=== PATIENT | male | born 1950 | race Caucasian/White ===

== ENCOUNTER 2017-06-22 17:24 | Emergency (ER) | payer OTHER ==
[~2017-06-22] VITALS: Ht 180.3 cm; Wt 80.0 kg
[~2017-06-22 17:24] MED LIST: FENO160T2 PO; HYDR-3580 PO; LOSA100T3 PO; METO50CR PO; NEXI40CA PO; RIVA10 PO
[2017-06-22 17:52] VITALS: BP 128/81; PULSE 98; RESP 16; TEMP 99.2; O2SAT 95
--- NOTE | 2017-06-22 17:56 | PD ---
HPI Chief Complaint: Alcohol intoxication Time Seen by Provider: 17:53 Travel History International Travel<30 days: No Contact w/Intl Traveler<30days: No History of Present Illness HPI 67yo M with PMH of alcohol abuse presents to the ED under [place] for alcohol intoxication. Pt was found lying in broken down cardboard and visibly intoxicated. Pt admits to drinking alcohol. Denies any fever, chest pain, sob , n/v, abdominal pain, focal weakness or numbness. Pt states "Im good". No overt signs of trauma and follows commands. PFSH Past Medical History Cancer: No Cardiovascular Problems: No Diabetes: Yes Endocrine: No Genitourinary: No Hepatitis: No Hiatal Hernia: No Immune Disorder: No Musculoskeletal: Yes (ARTHITIS KARISSA KNESS,HX CRUSHED VERTEBRA MID BACK, ) Neurologic: No Psychiatric: No Respiratory: No Thyroid Disease: No Past Surgical History Abdominal Surgery: No AICD: No Body Medical Devices: NONE Cardiac Surgery: No Ear Surgery: No Endocrine Surgery: No Eye Surgery: No Genitourinary Surgery: No Joint Replacement: No Oral Surgery: Yes (TONSILLECTOMY) Pacemaker: No Thoracic Surgery: No Social History Substance Use: No Allergies-Medications (Allergen,Severity, Reaction): Coded Allergies: codeine (Unverified Allergy, Severe, 06/22/17) CREEPY, CRAWLY FEELING ON SKIN Reported Meds & Prescriptions Reported Meds & Active Scripts Active Active Prescriptions or Reported Medications Unobtainable Review of Systems Except as stated in HPI: all other systems reviewed are Neg Physical Exam Narrative GENERAL: 67yo M not in distress. SKIN: Focused skin assessment warm/dry. HEAD: Atraumatic. Normocephalic. EYES: Pupils equal and round. No scleral icterus. No injection or drainage. ENT: No nasal bleeding or discharge. Mucous membranes pink and moist. NECK: No midline cervical spine ttp. CARDIOVASCULAR: Regular rate and rhythm. No murmur appreciated. RESPIRATORY: No accessory muscle use. Clear to auscultation. Breath sounds equal bilaterally. GASTROINTESTINAL: Abdomen soft, non-tender, nondistended. No rebound tenderness or guarding. MUSCULOSKELETAL: No obvious deformities. No clubbing. No cyanosis. No edema. NEUROLOGICAL: Awake and alert. No obvious cranial nerve deficits. Motor grossly within normal limits. Normal speech. Data Data Last Documented VS Vital Signs Date Time Temp Pulse Resp B/P (MAP) Pulse Ox O2 Delivery O2 Flow Rate FiO2 06/22/17 17:52 99.2 98 16 128/81 (97) 95 MDM Medical Decision Making Medical Screen Exam Complete: Yes Emergency Medical Condition: Yes Differential Diagnosis alcohol intoxication Narrative Course 67yo M with alcohol abuse here under [place] for alcohol intoxication. VS stable. Pt answers questions and follows commands. No overt signs of trauma. Will let pt sleep in off and sober up in the ED. Pt is medically clear for discharge upon ambulating in the ED without assistance. Diagnosis Primary Impression: Alcohol abuse Patient Instructions: General Instructions Departure Forms: Tests/Procedures Additional Instructions: Please follow up with your primary care physician in 3-7 days. Return to the ED if symptoms worsen. Med/Other Pt SpecificInfo: No Change to Meds Scripts Unable to Obtain Active Prescriptions or Reported Meds Disposition: 01 DISCHARGE HOME Condition: Stable Serene Mosley DO Jun 22, 2017 17:56
[2017-06-23 06:00] VITALS: BP 120/80
== END 2017-06-23 06:00 | disposition home or self-care (01) ==
LOC: NEDAMB 17:24
DX: F10.10 Alcohol abuse, uncomplicated (principal); E11.9 Type 2 diabetes mellitus without complications; M13.862 Other specified arthritis, left knee; M13.861 Other specified arthritis, right knee; Z88.5 Allergy status to narcotic agent
CPT/HCPCS: 99283

== ENCOUNTER 2018-06-01 05:06 | Inpatient (IN) ==
[2018-06-01] MEDS ORDERED: Chlorhexidine 4% Topical 120 APPLIC/120 ML Bottle TOPICAL SCH (06:15)
[2018-06-01] MEDS ORDERED: ceFAZolin 2 GM Premix Inj 2 GM/50 ML PIGGYBACK IV.SIG SCH (06:15)
[2018-06-01] MEDS ORDERED: Metoprolol Tartrate 25 MG Tablet PO SCH (06:15)
[2018-06-01] MEDS ORDERED: Chlorhexidine Gluconate 2% 1 Pack (2 Cloths) TOPICAL SCH (06:15)
[2018-06-01] MEDS ORDERED: Bupivacaine Liposomal PF 1.3% Inj 20 ML Vial ONE (06:19)
[2018-06-01] MEDS ORDERED: Sodium Chlor 0.9% Inj 40 ML, Bupivacaine Liposo PF 1.3% Inj 20 ML P-ARTICULR SCH ×2 (06:30)
[2018-06-01] MEDS ORDERED: TRANEXAMIC ACID IV.SIG SCH ×2 (07:00→10:00)
[2018-06-01] MEDS ORDERED: SODIUM CHLOR 0.9% IV.SIG SCH ×2 (07:00→10:00)
[2018-06-01] MEDS ORDERED: Sodium Chlor 0.9% Inj 500 ML IV.SIG SCH (07:00)
--- NOTE | 2018-06-01 09:10 | P.OP ---
- Preoperative Diagnosis (1) Primary osteoarthritis of left knee - Postoperative Diagnosis (1) Primary osteoarthritis of left knee Date of procedure: 06/01/18 Procedure: Left total knee arthroplasty using Anton Triathlon prosthesis (uncemented). Anesthesia: GETA, regional (Adductor canal block), local (Exparel) Surgeon: Russel Junior MD Obstetrical Nurse: HENRY Burger Estimated blood loss (mL): 150 Operation and Findings: Indications and Findings: This 68-year-old man has had 4 years of left knee pain progressively worsening with nonresponse to conservative measures including anti-inflammatory agents, analgesics, activity modification, intra- articular corticosteroids and ambulatory aids. He complained of pain with activities of daily living including ascending and descending ladders and stairs. Physical findings showed genuine varum with crepitation on motion, medial laxity, medial tenderness and palpable osteophytes. Radiographic findings showed significant osteoarthritis to [id number] in the medial compartment with loss of articular cartilage, osteophytes and eburnation. Operative findings: There were osteophytes in the medial, lateral and patellofemoral compartments. There was loss of articular cartilage to bone-on- bone in the medial compartment with significant grade 2-4 change in the patellofemoral compartment and grade 2-3 change in the lateral compartment. There is significant eburnation in the posterior aspect of the medial compartment. The prosthesis used was a [employer] Triathlon prosthesis. The femur was a size 7 left cruciate retaining uncemented. The tibial baseplate was a size 7 Tritanium with a 9 mm X3 polyethylene cruciate retaining spacer. The patella was a size 40 mm asymmetric uncemented Tritanium backed. The patient was brought to the clean-air operating suite after administration of a regional anesthetic by adductor canal block. A spinal anesthetic was administered. The position was supine with a small bolster under the hip on the operative side. A pneumatic tourniquet was applied to the upper thigh. The lower extremity was prepped with alcohol, Hibiclens and ChloraPrep and draped in the usual manner with the knee draped free. An appropriate timeout procedure was carried out. An incision was made from about 3 fingerbreadths above the superior medial pole of patella down the tibial tubercle on the medial side. The incision was deepened through the subcutaneous tissue to the retinacular structures which were exposed medially and laterally. A medial retinacular incision was made from the superior medial pole of patella down the tibial tubercle and up into the quadriceps tendon, splitting it longitudinally in the medial one third. The patella was reflected. The infrapatellar fat pad was debulked. The anterior cruciate ligament was excised. Medial and lateral meniscectomies were initiated. Fenestrations were made in the distal femur and proximal tibia for intramedullary referencing guides. The distal femoral cutting guide and jig were assembled for a 5, 8 mm cut. When this was fit into position,the cutting block was stabilized with pins. The jig was removed. The distal femoral cut was completed with the oscillating saw. The sizing guide was positioned in place along Whitesides line and the epicondylar axis and stabilized with pins. The femoral size was determined as noted above. The 4-in-1 cutting block was positioned in place. Anterior and posterior cuts were made followed by posterior and anterior chamfer cuts taking care to prevent injury to ligamentous structures. Osteophytes were trimmed from the distal femur. A bone plug was placed into the fenestration of the distal femur. The proximal tibia was exposed. The medial and lateral meniscectomies were completed. The proximal tibial cutting guide was positioned in place and stabilized with a pin for rotation. The depth of cut was verified with a stylus off the high side. The cutting block was stabilized with pins. The jig was removed. The depth of cut was verified and adjusted appropriately with the use of the spacer block. The proximal tibial cut was made with the oscillating saw taking care to prevent injury to neurovascular and ligamentous structures. Proximal tibial bone was removed. Local anesthetic was administered with Exparel in the posterior capsule. The tibial baseplate trial was positioned in place. After verifying the appropriate size, the base plate trial was positioned in place along with its spacer. The femoral component was impacted into place. The alignment was checked. The tibial baseplate was pinned in place on the tibia. Attention was directed to the patella. The patella drill guide was positioned in place for the appropriate sized patella. Patellar drilling was then carried out. The trial patella was positioned in place. The knee was taken through a range of motion which was easily 0 extension to 140. The patella trial was removed. The femoral drill holes were made. The femoral trials were removed. The tibial spacer was removed. A bone plug was placed into the proximal tibia. The tibial punch was impacted through the proximal tibial punch guide. This was all removed followed by placement of the tibial drill guide. The tibial drill holes were made. The guide was removed. The cut ends of bone were cleaned with pulse lavage. The tibial baseplate was impacted into place and seated appropriately. The spacer was inserted. The the femoral component was impacted into place and seated appropriately. The patella component was seated with the patellar vice and tightened appropriately. The knee was taken through a range of motion which was comparable to the previous range of motion with excellent stability in flexion and extension and appropriate patellofemoral tracking. The remainder of the Exparel was injected throughout the knee as a local anesthetic. Drains were brought out the superior lateral aspect of the suprapatellar pouch. Wound closure commenced using 0 Vicryl interrupted [id number] sutures for the capsular and fascial structures, 2-0 Vicryl interrupted simple sutures with buried knots for the subcutaneous tissues and 4-0 Monocryl, continuous subcuticular closure for the skin. The wound was dressed with Dermabond Prineo followed by a dry sterile dressing. Sterile soft roll with a cooling pad and Eduin bandage from the base of the toes to mid thigh were applied. Patient was transferred from the operating room to the recovery room in satisfactory condition having tolerated procedure well. Counts were correct. Specimens: None. Estimated blood loss: 150 mL
[2018-06-01] MEDS ORDERED: Post-op Orders (for Pharmacy) OTHER STA (09:13)
[2018-06-01] MEDS ORDERED: Zolpidem Tartrate 5 MG Tablet PO PRN (09:13)
[2018-06-01] MEDS ORDERED: Acetaminophen 325 MG Tablet PO PRN (09:13)
[2018-06-01] MEDS ORDERED: Tranexamic Acid Inj 0 MG in Sodium Chlor 0.9% Inj 100 ML IV.SIG ONE (09:13)
[2018-06-01] MEDS ORDERED: Morphine Inj 4 MG/ML Vial IV.PUSH PRN (09:13)
[2018-06-01] MEDS ORDERED: Aluminum/Magnesium/Simethacone Susp 30 ML UDC PO PRN (09:13)
[2018-06-01] MEDS ORDERED: Bisacodyl 10 MG Supp RECTAL PRN (09:13)
--- NOTE | 2018-06-01 09:28 | P.DCO ---
- Physical Therapy Physical Therapy: Gait training Knee: Total knee, Protocol: Left, Gait training, Full weight bearing Left Lower Extremity Weight Bearing: Weight bearing as tolerated Left Lower Extremity Range of Motion: Active ROM (Active, active assisted, passive range of motion. Range of motion goal is 0 extension to 135 of flexion. Range of motion achieved in the operating room was 0 extension to 140 of flexion.) - Nursing Nursing: Dressing changes Dressing changes: Daily dressing change, Coverderm/Primapore Additional instructions: Do not remove Dermabond Prineo. - Certification Need for Home Health services: I have seen patient Cullen Viet Bruno on 06/01/18. My clinical findings support the need for the requested home health care services because: Need for Home Health Services: Limited mobility due to disease progression, Deconditioned with increased weakness, High risk of falls Homebound Certification: I certify that my clinical findings support that this patient is homebound because: Homebound Certification: Post-op weakness, Unsteady gait/balance, Unsafe to leave home unassisted
[2018-06-01] MEDS ORDERED: fentaNYL Citrate Inj 100 MCG/2 ML Ampul ONE (09:44)
[2018-06-01] MEDS ORDERED: *morphine SULFATE 4 MG/ML PERIprocedure ONLY ONE (10:06)
--- NOTE | 2018-06-01 10:37 | XR ---
EXAM DATE: 06/01/2018 10:23 AM EDT AGE/SEX: 68 years / Male INDICATIONS: Post op, left knee surgery. CLINICAL DATA: This is the patient's initial encounter. Patient reports that signs and symptoms have been present for 1 day and indicates a pain score of 2/10. MEDICAL/SURGICAL HISTORY: None. None. COMPARISON: No prior exams available for comparison. FINDINGS: A total knee arthroplasty is identified. The bone density is normal. The tibial and femoral component s appear well seated. There is a surgical drain identified and mild soft tissue swelling. CONCLUSION: Postoperative changes left knee arthroplasty. Electronically signed by: Jewel Landry MD 06/01/2018 10:35 AM EDT
[2018-06-01] MEDS: Ketorolac Inj 30 MG/ML (IVP) Vial IV.PUSH SCH ×3 (11:18→21:28)
[2018-06-01] MEDS ORDERED: Labetalol HCl Inj 100 MG/20 ML Vial IV.PUSH ONE (12:00)
[2018-06-01] MEDS ORDERED: Glycopyrrolate Inj 1 MG/5 ML Syringe IV.PUSH ONE (12:00)
[2018-06-01] MEDS ORDERED: Lidocaine PF 1% Inj 5 ML Syringe INFILTRATN ONE (12:00)
[2018-06-01] MEDS ORDERED: Dextrose 50% in Water 50 ML Vial IV.PUSH PRN (17:27)
--- NOTE | 2018-06-01 17:34 | P.CONIM ---
History of Present Illness Service: [facility] Consult date: 06/01/18 Requesting Physician: Russel Junior Reason for Consult: Medical management Primary Care Provider: No Primary Care Physician Family Provider: No Primary Care Physician History of Present Illness: 68 YOWM with DM, HTN, and HLD admitted for elective L total knee replacement. [facility] consulted for medical management. Patient seen post-operatively. Reports pain is well-controlled. Denies chest pain, shortness of breath, abdominal pain , nausea, or vomiting. He doesn't want to take insulin in the hospital. Review of Systems All other systems reviewed negative except as stated in HPI [facility] - History History Provided By: Patient, Significant Other - Medical History Medical History: Medical History (Last Reviewed 06/01/18 @ 11:12 by Echo Muñiz) Cyst Diabetes GERD (gastroesophageal reflux disease) Hard of hearing Hypertension Osteoporosis Wears glasses - Surgical History Surgical History: Surgical History (Last Reviewed 06/01/18 @ 11:12 by Echo Muñiz) H/O Achilles tendon repair History of total right knee replacement History of vasectomy Hx of tonsillectomy - Tobacco History Second Hand Smoke Exposure: No Tobacco Use In Past 30 Days: No Smoking Status: Never smoker - Alcohol History How Often Do You Have a Drink Containing Alcohol: 2 to 4 times a month - Substance Use History Substance History: No History of Abuse - Immunization History Tetanus Immunization: Unsure Hx Influenza Vaccine This Season: Yes Medications and Allergies Active Medications: Active Medications Acetaminophen (Tylenol) 650 mg PO Q6H PRN PRN Reason: Pain Less Than 3 On Scale Hydrocodone Bitart/Acetaminophen ([place] 7.5/325) 1 tab PO Q4H PRN PRN Reason: PAIN SCALE 4 TO 6 MODERATE Last Admin: 06/01/18 17:07 Dose: 1 tab Hydrocodone Bitart/Acetaminophen ([place] 7.5/325) 2 tab PO Q6H PRN PRN Reason: PAIN SCALE 7 TO 10 SEVERE Al Hydrox/Mg Hydrox/Simethicone (Mag-Al Plus Susp Liq) 30 ml PO Q6H PRN PRN Reason: INDIGESTION Al Hydroxide/Mg Hydroxide (Milk Of Magnesia Liq) 30 ml PO BID PRN PRN Reason: Mild Constipation Aspirin (Aspirin Chew) 81 mg PO BID [facility] Bisacodyl (Dulcolax Supp) 10 mg RECTAL DAILY PRN PRN Reason: SEVERE CONSITIPATION Chlorhexidine Gluconate (Chlorhexidine 2% Cloth) 3 pack TOPICAL [employer]IL [employer]IP[employer] [facility] Stop: 06/04/18 06:02 Chlorhexidine Gluconate (Hibiclens 4% Topical) 1 applicatio TOPICAL ONCE [facility] Stop: 06/05/18 06:14 Sodium Chloride 40 ml/ (Bupivacaine Liposome 20 ml) 0 ml P-ARTICULR ONCE [facility] Stop: 06/01/18 21:00 Last Admin: 06/01/18 07:21 Dose: 1 bag Diphenhydramine HCl (Benadryl) 25 mg PO Q6H PRN PRN Reason: ITCHING Fenofibrate (Tricor) 145 mg PO HS [facility] Hydrochlorothiazide (Hydrodiuril) 25 mg PO HS [facility] Hydrocortisone Acetate (Hydrocortisone 1% Cream) 1 applicatio TOPICAL BID [facility] Lactated Ringer's (Lr 1000 Ml Inj) 1,000 mls @ 30 mls/hr IV.SIG .Q24H [facility] Stop: 06/04/18 06:02 Last Admin: 06/01/18 06:05 Dose: 30 mls/hr Sodium Chloride (Ns Inj) 500 mls @ 30 mls/hr IV.SIG .Q10H [facility] Stop: 06/04/18 06:02 Tranexamic Acid 982 mg/ Sodium (Chloride) 109.82 mls @ 200 mls/hr IV.SIG ONCE [facility] Stop: 06/02/18 06:59 Last Infusion: 06/01/18 07:37 Dose: Infused Tranexamic Acid 982 mg/ Sodium (Chloride) 109.82 mls @ 200 mls/hr IV.SIG ONCE [facility] Stop: 06/02/18 09:59 Last Admin: 06/01/18 10:02 Dose: 200 mls/hr Cefazolin Sodium/Dextrose (Ancef 2 Gm Premix Inj) 2 gm in 50 mls @ 100 mls/hr IV.SIG [employer]IL [employer]IP[employer] [facility] Stop: 06/01/18 21:00 Last Infusion: 06/01/18 07:29 Dose: Infused Cefazolin Sodium 1,000 mg/ (Sodium Chloride) 100 mls @ 200 mls/hr IV.SIG Q6H [facility] Stop: 06/02/18 01:29 Last Admin: 06/01/18 12:44 Dose: 200 mls/hr Lactated Ringer's (Lr 1000 Ml Inj) 1,000 mls @ 80 mls/hr IV.CONT .[id number] [facility] Last Admin: 06/01/18 09:44 Dose: 80 mls/hr Ketorolac Tromethamine (Toradol Inj) 15 mg IV.PUSH Q6H [facility] Stop: 06/03/18 04:01 Last Admin: 06/01/18 15:37 Dose: 15 mg Lactulose (Lactulose Liq) 30 ml PO DAILY PRN PRN Reason: SEVERE CONSITIPATION Losartan Potassium (Cozaar) 100 mg PO HS [facility] Metformin HCl (Glucophage) 500 mg PO HS [facility] Metoprolol Tartrate (Lopressor) 25 mg PO [employer]IL [employer] [facility] Stop: 06/04/18 06:02 Miscellaneous Information ([facility] Nursing Information) 1 each OTHER UNSCH PRN PRN Reason: SEE LABEL COMMENTS Stop: 06/02/18 09:26 Morphine Sulfate (Morphine Inj) 2 mg IV.PUSH Q3H PRN PRN Reason: BREAKTHROUGH PAIN Multivitamins (Theragran) 1 tab PO DAILY [facility] Ondansetron HCl (Zofran Odt) 4 mg PO Q6H PRN PRN Reason: NAUSEA OR VOMITING Pantoprazole Sodium (Protonix) 40 mg PO HS [facility] Patient Own Medication - ( Canagliflozin [ Invokana] 100 Mg) Tablet 1 each PO DAILY [facility] Povidone Iodine (Betadine 5% Antisepsis Kit) 1 applicatio EACH NARE [employer] [facility] Stop: 06/04/18 06:02 Senna/Docusate Sodium (Andreia-Colace) 1 tab PO BID [facility] Sennosides (Senokot) 17.2 mg PO BID PRN PRN Reason: Moderate Constipation Sildenafil Citrate (Revatio) 20 mg PO DAILY [facility] Sodium Chloride (Ns Flush) 2 ml IV.FLUSH BID [facility] Sodium Chloride (Ns Flush) 2 ml IV.FLUSH PRN PRN PRN Reason: FLUSH AFTER USING IV ACCESS Verapamil HCl (Isoptin Sr) 120 mg PO DAILY [facility] Vitamin D (Vitamin D3) 1,000 unit PO DAILY [facility] Vitamin E (Vitamin E) 400 unit PO DAILY [facility] Zolpidem Tartrate (Ambien) 5 mg PO HS PRN PRN Reason: INSOMNIA Allergies Allergy/AdvReac Type Severity Reaction Status Date / Time codeine Allergy Severe Itching Verified 06/01/18 06:30 Home Medications Medication Instructions Recorded Confirmed Type aspirin [Aspirin Low Dose] 81 mg PO DAILY 05/14/18 06/01/18 History calcium carbonate [Calcium 600] 600 mg PO DAILY 05/14/18 06/01/18 History canagliflozin [Invokana] 100 mg PO DAILY 05/14/18 06/01/18 History cholecalciferol (vitamin D3) 1,000 unit PO DAILY 05/14/18 06/01/18 History [Vitamin D3] esomeprazole magnesium 40 mg PO DAILY 05/14/18 06/01/18 History fenofibrate 160 mg PO DAILY 05/14/18 06/01/18 History hydrocortisone 1 applic TOPICAL BID 05/14/18 06/01/18 History losartan-hydrochlorothiazide 1 tab PO DAILY 05/14/18 06/01/18 History metformin 500 mg PO DAILY 05/14/18 06/01/18 History milk thistle 300 mg PO DAILY 05/14/18 06/01/18 History multivit with min-folic acid 1 tab PO DAILY 05/14/18 06/01/18 History [Adult One Daily Multivitamin] saw palmetto 320 mg PO DAILY 05/14/18 06/01/18 History tadalafil [Cialis] 20 mg PO DAILY 05/14/18 06/01/18 History verapamil 120 mg PO DAILY 05/14/18 06/01/18 History vitamin E 400 unit PO DAILY 05/14/18 06/01/18 History Exam Vital signs: Vital Signs 06/01/18 06:10 06/01/18 06:22 06/01/18 09:26 Temperature 98.2 F 98.3 F Pulse Rate 73 68 92 H Respiratory Rate 20 10 L Blood Pressure 156/76 H 168/71 H Pulse Oximetry 96 97 98 06/01/18 09:30 06/01/18 09:45 06/01/18 10:00 Temperature Pulse Rate 78 73 74 Respiratory Rate 13 12 16 Blood Pressure 137/71 150/72 H 124/62 Pulse Oximetry 95 94 L 99 06/01/18 10:30 Temperature 97.8 F Pulse Rate 72 Respiratory Rate 14 Blood Pressure 136/71 Pulse Oximetry 96 Intake & Output 05/31/18 06/01/18 06/01/18 18:59 06:59 18:59 Intake Total 909.82 / 909.82 Output Total 150 / 150 Balance 759.82 / 759.82 Weight 98.2 kg Intake: IV 159.82 / 159.82 Cyklokapron Inj 982 MG In NS 109.82 / 109.82 Inj 100 ML @ 200 mls/hr IV.SIG ONCE [facility] Rx#:[id number] Ancef 2 GM Premix Inj 2 gm In 50 / 50 50 ml @ 100 mls/hr IV.SIG [employer]IP[employer] [facility] Rx#:[id number] Anesthesia Amount 750 / 750 Output: Estimated Blood Loss 150 / 150 Other: Date of Last Bowel Movement 05/31/18 Weight On Admission 98.2 kg Narrative: GENERAL: WN, WD male sitting up in chair in NAD. SKIN: Warm and dry. HEART: RRR no m/r/g. LUNGS: CTAB without wheezes or crackles. ABDOMEN: +BS, soft, NT, ND. EXTREMITIES: No LE edema. Dressing over left knee. NEURO: Awake and alert. Nonfocal. PSYCH: Appropriate mood and affect. Results - Labs Labs: Laboratory Results - last 24 hr 06/01/18 06/01/18 06/01/18 05:56 09:37 17:06 POC Glucose 143 H 184 H Blood Type A Positive Antibody Screen Negative - Imaging Impressions Knee X-Ray 06/01/18 09:11 CONCLUSION: Postoperative changes left knee arthroplasty. Assessment and Plan - Assessment (1) Status post total left knee replacement not using cement Code(s): Z96.652 - Presence of left artificial knee joint Status: Acute - Plan 68 YOWM with DM, HTN, and HLD admitted for elective L total knee replacement. [facility] consulted for medical management. 1. S/P LTKR - Post-op management per ortho 2. DM - Resume home metformin and Invokana - Monitor Accuchecks 3. HTN - Resume home Lopressor, Losartan, HCTZ and verapamil - Monitor BPs 4. Hypertriglyceridemia - Resume home fenofibrate DVT prophylaxis: Per ortho Discussed Condition With: The patient and telephone order supervisor Planning: Per ortho
[2018-06-01] MEDS: hydroCHLOROthiazide 25 MG Tablet PO SCH (21:21)
[2018-06-01] MEDS: Fenofibrate 145 MG Tablet PO SCH (21:21)
[2018-06-01] MEDS: Senna/Docusate Sodium 8.6/50 MG Tablet PO SCH (21:21)
[2018-06-02] MEDS: Ketorolac Inj 30 MG/ML (IVP) Vial IV.PUSH SCH ×4 (03:29→21:59)
--- NOTE | 2018-06-02 06:27 | P.PNOP ---
Subjective Interval history: Postop day #1. He is doing well. He has minimal complaints related to the knee at this time. He has been up walking. Physical therapy notes note that he walked 155 feet and had a range of motion of 0 extension to 92 of flexion. Physical Exam Vital signs: Vital Signs 06/01/18 09:26 06/01/18 09:30 06/01/18 09:45 Temperature 98.3 F Pulse Rate 92 H 78 73 Respiratory Rate 10 L 13 12 Blood Pressure 168/71 H 137/71 150/72 H Pulse Oximetry 98 95 94 L 06/01/18 10:00 06/01/18 10:30 06/01/18 12:00 Temperature 97.8 F 97.6 F Pulse Rate 74 72 78 Respiratory Rate 16 14 16 Blood Pressure 124/62 136/71 137/68 Pulse Oximetry 99 96 96 06/01/18 16:00 06/01/18 20:00 06/02/18 00:00 Temperature 97.9 F 97.6 F 97.6 F Pulse Rate 77 74 80 Respiratory Rate 16 17 17 Blood Pressure 138/74 138/57 L 125/60 Pulse Oximetry 95 95 96 06/02/18 01:30 06/02/18 04:00 Temperature 97.6 F Pulse Rate 70 Respiratory Rate 15 17 Blood Pressure 132/60 Pulse Oximetry 98 Intake & Output 06/01/18 06/01/18 06/02/18 06:59 18:59 06:59 Intake Total 1559.82 / 1559.82 240 / 240 Output Total 150 / 150 100 / 100 Balance 1409.82 / 1409.82 140 / 140 Weight 98.2 kg 100.3 kg Intake: IV 359.82 / 359.82 Cyklokapron Inj 982 MG In NS 109.82 / 109.82 Inj 100 ML @ 200 mls/hr IV.SIG ONCE PETERSON Rx#:[id number] Ancef 2 GM Premix Inj 2 gm In 50 / 50 50 ml @ 100 mls/hr IV.SIG RINK RAT [facility]ERSON Rx#:[id number] Ancef Inj 1,000 MG In NS Inj 200 / 200 100 ML @ 200 mls/hr IV.SIG Q6H [facility]ERSON Rx#:[id number] Oral 450 / 450 240 / 240 Anesthesia Amount 750 / 750 Output: Estimated Blood Loss 150 / 150 Wound Drainage 100 / 100 # 2 Left Knee Hemovac 100 / 100 Other: # Voids 3 2 Date of Last Bowel Movement 05/31/18 05/31/18 Weight On Admission 98.2 kg Narrative: He is resting comfortably, supine in bed, in the CPM. The dressing is dry and intact. The neurovascular status is intact. Results - Labs Laboratory Results - last 24 hr 06/01/18 06/01/18 06/01/18 05:56 09:37 17:06 POC Glucose 143 H 184 H Blood Type A Positive Antibody Screen Negative 06/01/18 21:42 POC Glucose 208 H Blood Type Antibody Screen - Imaging Impressions Knee X-Ray 06/01/18 09:11 CONCLUSION: Postoperative changes left knee arthroplasty. - Procedures Left total knee arthroplasty using [place] Triathlon prosthesis (uncemented) on 06/01/2018 Assessment and Plan - Ortho Post Op Day # 1 - Problem List (1) Status post total left knee replacement not using cement Code(s): Z96.652 - Presence of left artificial knee joint Status: Acute Plan: Continue postop care and PT. (2) Primary osteoarthritis of left knee Code(s): M17.12 - Unilateral primary osteoarthritis, left knee Status: Acute - Assessment and Plan Condition: Good. Orthopedically stable. DVT prophylaxis: TEDs, aspirin, sequentials. Discharge plans: Home with home health care. An appointment was scheduled through the office. Prescriptions: [place] 7.5/325; Patient is having significant pain caused by a total knee replacement which will last more than 3 days. Trial of Tylenol has not helped. I believe that it is medically necessary to treat patients pain because it is affecting patients ability to participate in postoperative rehabilitation and perform activities of daily living in a comfortable and efficient manner.
--- NOTE | 2018-06-02 06:30 | P.DS ---
Date of admission: 06/01/18 05:06 Primary care physician: Lety Primary Care Physician Attending physician on discharge: Russel Junior Anticipated date of discharge: 06/03/18 Brief History from admission: This 68-year-old man has had long-standing left knee pain secondary to osteoarthritis that has not responded to conservative measures including anti- inflammatory agents, analgesics, ambulatory aids and intra-articular corticosteroid injections. Physical findings showed genuine varum with crepitation on range of motion, palpable osteophytes, an antalgic gait and tenderness on motion. X-ray showed severe osteoarthritis to [id number] in the medial compartment with osteophytes and eburnation. DS: Diagnosis - Discharge Diagnosis (1) Status post total left knee replacement not using cement Status: Acute (2) Primary osteoarthritis of left knee Status: Acute DS: Summary Hospital Course: The patient was admitted as noted above. The above noted operative procedure was carried out that day. Preoperatively prophylactic antibiotics were administered Ancef according to protocol. These were continued postoperatively. The patient also received tranexamic acid to help with hemostasis according to protocol. In the postanesthesia care unit a continuous passive motion device was initiated. Also initiated were mechanical methods of DVT prophylaxis in the form of ZEKE stockings and sequentials. Physical therapy was initiated on the day of surgery. On postoperative day #1 physical therapy continued. The use of the continuous passive motion device continued. DVT prophylaxis with aspirin 81 mg twice daily was initiated at this time. The patient continued physical therapy throughout the hospitalization. The distance walked and range of motion improved throughout the hospitalization. His range of motion on postop day 1 was 0 extension to 100 of flexion. He walked 400 feet. The patient was discharged on postoperative day 2 with the disposition being to home with home health care. An appointment for follow-up was made prior to admission. - Time Spent with Patient Total time spent providing and/or coordinating discharge services: - Quality: VTE Deep Vein Thrombosis/Pulmonary Embolism Present on Admission: No Exam Vital signs: Vital Signs 06/01/18 09:26 06/01/18 09:30 06/01/18 09:45 Temperature 98.3 F Pulse Rate 92 H 78 73 Respiratory Rate 10 L 13 12 Blood Pressure 168/71 H 137/71 150/72 H Pulse Oximetry 98 95 94 L 06/01/18 10:00 06/01/18 10:30 06/01/18 12:00 Temperature 97.8 F 97.6 F Pulse Rate 74 72 78 Respiratory Rate 16 14 16 Blood Pressure 124/62 136/71 137/68 Pulse Oximetry 99 96 96 06/01/18 16:00 06/01/18 20:00 06/02/18 00:00 Temperature 97.9 F 97.6 F 97.6 F Pulse Rate 77 74 80 Respiratory Rate 16 17 17 Blood Pressure 138/74 138/57 L 125/60 Pulse Oximetry 95 95 96 06/02/18 01:30 06/02/18 04:00 Temperature 97.6 F Pulse Rate 70 Respiratory Rate 15 17 Blood Pressure 132/60 Pulse Oximetry 98 Intake & Output 06/01/18 06/01/18 06/02/18 06:59 18:59 06:59 Intake Total 1559.82 / 1559.82 240 / 240 Output Total 150 / 150 100 / 100 Balance 1409.82 / 1409.82 140 / 140 Weight 98.2 kg 100.3 kg Intake: IV 359.82 / 359.82 Cyklokapron Inj 982 MG In NS 109.82 / 109.82 Inj 100 ML @ 200 mls/hr IV.SIG ONCE [facility] Rx#:[id number] Ancef 2 GM Premix Inj 2 gm In 50 / 50 50 ml @ 100 mls/hr IV.SIG [employer] SUPER[employer]OR [facility] Rx#:[id number] Ancef Inj 1,000 MG In NS Inj 200 / 200 100 ML @ 200 mls/hr IV.SIG Q6H [facility] Rx#:[id number] Oral 450 / 450 240 / 240 Anesthesia Amount 750 / 750 Output: Estimated Blood Loss 150 / 150 Wound Drainage 100 / 100 # 2 Left Knee Hemovac 100 / 100 Other: # Voids 3 2 Date of Last Bowel Movement 05/31/18 05/31/18 Weight On Admission 98.2 kg Narrative: He is resting comfortably, supine in bed. The dressing has been removed. The wound is clean and dry and healing well. The neurovascular status is intact. Results Procedures completed during hospitalization: Left total knee arthroplasty using [place] Triathlon prosthesis (uncemented) on 06/01/2018 Labs on day of discharge: Labs from last 24 hours 06/01/18 06/01/18 06/01/18 21:42 17:06 09:37 POC Glucose 208 H 184 H 143 H Blood Type Antibody Screen 06/01/18 05:56 POC Glucose Blood Type A Positive Antibody Screen Negative - Impressions ITS Impressions Knee X-Ray 06/01/18 09:11 CONCLUSION: Postoperative changes left knee arthroplasty. Discharge Plan - Discharge Disposition Patient Disposition: /Home Health Service - Discharge Condition Condition: Stable - Discharge Order Discharge Orders: Discharge Order (Routine); Ordered 06/02/18 Ordered By: Russel Junior - Discharge Details Anticipated Discharge Date: 06/02/18 - Physicians Team Primary Care Provider: Primary Care Lety Fregoso Attending Provider: Russel Junior Other Providers: [facility] - Rxs /Orders / Referrals /Forms Prescriptions: New aspirin 81 mg Tablet,Chewable 81 mg PO BID RF: 0 Continue calcium carbonate [Calcium 600] 600 mg calcium (1,500 mg) Tablet 600 mg PO DAILY canagliflozin [Invokana] 100 mg Tablet 100 mg PO DAILY cholecalciferol (vitamin D3) [Vitamin D3] 1,000 unit Capsule 1,000 unit PO DAILY esomeprazole magnesium 40 mg Capsule,Delayed Release(Dr/Ec) 40 mg PO DAILY fenofibrate 160 mg Tablet 160 mg PO DAILY hydrocortisone 1 % Cream 1 applic TOPICAL BID losartan-hydrochlorothiazide 100-25 mg Tablet 1 tab PO DAILY metformin 500 mg Tablet Extended Release 24hr 500 mg PO DAILY milk thistle 150 mg Capsule 300 mg PO DAILY multivit with min-folic acid [Adult One Daily Multivitamin] 0.4 mg Tablet 1 tab PO DAILY saw palmetto 160 mg Capsule 320 mg PO DAILY tadalafil [Cialis] 20 mg Tablet 20 mg PO DAILY verapamil 120 mg Tablet Extended Release 120 mg PO DAILY vitamin E 400 unit Capsule 400 unit PO DAILY Discontinued aspirin [Aspirin Low Dose] 81 mg Tablet,Delayed Release (Dr/Ec) 81 mg PO DAILY Referrals: Russel Junior MD [Physician] - See Instructions Primary Care Lety Fregoso [Primary Care Provider] - See Instructions - Discharge Instructions Patient Printed Instructions: Knee Replacement (DC)
[2018-06-02 07:15] LABS: Hematocrit 36.6 % (39.0-51.0); Hemoglobin 12.2 gm/dL (13.0-17.0)
[2018-06-02] MEDS ORDERED: CANAGLIFLOZIN 100 MG PO SCH (09:00)
[2018-06-02] MEDS ORDERED: MILK THISTLE 300 MG PO SCH (09:00)
[2018-06-02] MEDS: Calcium Carbonate 500 MG Tablet PO SCH (09:00)
[2018-06-02] MEDS ORDERED: Fenofibrate 145 MG Tablet PO SCH (09:00)
[2018-06-02] MEDS: Senna/Docusate Sodium 8.6/50 MG Tablet PO SCH ×2 (09:00→21:58)
[2018-06-02] MEDS ORDERED: Non-Formulary Drug (Losartan-Hydrochlorothiazide [Losartan-Hydrochlorothiazide] 1 TAB) PO SCH (09:00)
[2018-06-02] MEDS ORDERED: hydroCHLOROthiazide 25 MG Tablet PO SCH (09:00)
--- NOTE | 2018-06-02 12:56 | P.PN ---
Subjective Interval history: Follow up: DM, HTN, and HLD s/p L total knee replacement. Patient reports feeling well offers no specific complaints at this time Physical Exam Vital signs: Vital Signs 06/01/18 16:00 06/01/18 20:00 06/02/18 00:00 Temperature 97.9 F 97.6 F 97.6 F Pulse Rate 77 74 80 Respiratory Rate 16 17 17 Blood Pressure 138/74 138/57 L 125/60 Pulse Oximetry 95 95 96 06/02/18 01:30 06/02/18 04:00 Temperature 97.6 F Pulse Rate 70 Respiratory Rate 15 17 Blood Pressure 132/60 Pulse Oximetry 98 Intake & Output 06/01/18 06/02/18 06/02/18 18:59 06:59 18:59 Intake Total 1559.82 / 1559.82 240 / 240 Output Total 150 / 150 100 / 100 Balance 1409.82 / 1409.82 140 / 140 Weight 100.3 kg Intake: IV 359.82 / 359.82 Cyklokapron Inj 982 MG In NS 109.82 / 109.82 Inj 100 ML @ 200 mls/hr IV.SIG ONCE [facility] Rx#:[id number] Ancef 2 GM Premix Inj 2 gm In 50 / 50 50 ml @ 100 mls/hr 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 CARDIOVASCULAR: Regular rate and rhythm RESPIRATORY: Clear to auscultation. Breath sounds equal bilaterally. GASTROINTESTINAL: Abdomen soft, non-tender, nondistended. Normal active bowel sounds MUSCULOSKELETAL: Extremities without clubbing, cyanosis, or edema. Post-op dressing left lower extremity dry and intact, drain in place NEURO: Alert & Oriented x4 to person, place, time, situation. Moves all ext x4 Results - Labs CBC & Chem 7: 06/02/18 06:01 Laboratory Results - last 24 hr 06/01/18 06/01/18 06/02/18 17:06 21:42 06:01 Hgb 12.2 L Hct 36.6 L POC Glucose 184 H 208 H 06/02/18 06/02/18 08:58 12:08 Hgb Hct POC Glucose 142 H 168 H - Procedures Left total knee arthroplasty using [place] Triathlon prosthesis (uncemented) on 06/01/2018 Assessment and Plan - Plan 68 YOWM with DM, HTN, and HLD admitted for elective L total knee replacement. [facility] consulted for medical management. 1. S/P LTKR - Post-op management per ortho 2. DM - Resume home metformin and Invokana - Monitor Accuchecks 3. HTN - Resume home Lopressor, Losartan, HCTZ and verapamil - Monitor BPs 4. Hypertriglyceridemia - Resume home fenofibrate DVT prophylaxis: Per ortho appears medically stable cleared for DC from hospitalist standpoint will sign off Discussed case with supervising physician Dr. Franco
[2018-06-02] MEDS ORDERED: Dextrose 50% in Water 50 ML Vial IV.PUSH PRN (13:31)
[2018-06-02] MEDS: hydroCHLOROthiazide 25 MG Tablet PO SCH (21:58)
[2018-06-02] MEDS: Fenofibrate 145 MG Tablet PO SCH (21:58)
[2018-06-03 05:05] VITALS: O2SAT 97
[2018-06-03] MEDS: Ketorolac Inj 30 MG/ML (IVP) Vial IV.PUSH SCH (05:30)
--- NOTE | 2018-06-03 07:20 | P.PNOP ---
Subjective Interval history: Postop day #2. He is doing relatively well. He has some pain in the knee now. The effect of the block is gone. PT notes shows that he walked 400 feet and had a range of motion from 0 extension to 100 of flexion. Physical Exam Vital signs: Vital Signs 06/02/18 08:00 06/02/18 12:00 06/02/18 20:00 Temperature 98.4 F 97.5 F L 98.7 F Pulse Rate 78 72 87 Respiratory Rate 17 16 18 Blood Pressure 153/73 H 142/65 H 169/74 H Pulse Oximetry 96 96 97 06/03/18 00:00 06/03/18 04:00 Temperature 98.1 F 97.6 F Pulse Rate 84 86 Respiratory Rate 17 18 Blood Pressure 144/63 H 139/70 Pulse Oximetry 96 97 Intake & Output 06/02/18 06/03/18 06/03/18 18:59 06:59 18:59 Intake Total 720 / 720 1500 / 1500 Output Total 150 / 150 Balance 570 / 570 1500 / 1500 Weight 100.3 kg Intake: Oral 720 / 720 1500 / 1500 Output: Wound Drainage 150 / 150 # 2 Left Knee Hemovac 150 / 150 Other: # Voids 4 3 Date of Last Bowel Movement 06/01/18 06/01/18 Narrative: He is resting comfortably, supine in bed. His dressing and drain have been removed. The wound is clean and dry and healing well. The neurovascular status is intact. Results - Labs CBC & Chem 7: 06/02/18 06:01 Laboratory Results - last 24 hr 06/02/18 06/02/18 06/02/18 08:58 12:08 22:10 POC Glucose 142 H 168 H 176 H - Imaging Knee X-Ray 06/01/18 09:11 CONCLUSION: Postoperative changes left knee arthroplasty. - Procedures Left total knee arthroplasty using [place] Triathlon prosthesis (uncemented) on 06/01/2018 Assessment and Plan - Ortho Post Op Day # 2 - Problem List (1) Status post total left knee replacement not using cement Code(s): Z96.652 - Presence of left artificial knee joint Status: Acute (2) Primary osteoarthritis of left knee Code(s): M17.12 - Unilateral primary osteoarthritis, left knee Status: Acute - Assessment and Plan Condition: Good. Orthopedically stable. DVT prophylaxis: TEDs, aspirin, sequentials. Discharge plans: Home with home health care. An appointment was scheduled through the office. Prescriptions: [place] 7.5/325; Patient is having significant pain caused by a total knee replacement which will last more than 3 days. Trial of Tylenol has not helped. I believe that it is medically necessary to treat patients pain because it is affecting patients ability to participate in postoperative rehabilitation and perform activities of daily living in a comfortable and efficient manner.
[2018-06-03 10:30] VITALS: BP 150/70; PULSE 95; RESP 20; TEMP 98.4
[2018-06-03] MEDS: Senna/Docusate Sodium 8.6/50 MG Tablet PO SCH (10:47)
[2018-06-03] MEDS: Calcium Carbonate 500 MG Tablet PO SCH (10:47)
== END 2018-06-03 11:14 | disposition home health service (06) ==
LOC: HSDI 05:06 → N06 10:48 → UNDODISIN 06-02 14:01
PROVIDERS: ADMIT Orthopaedic Surgery; ATTEND Orthopaedic Surgery